=== PATIENT | female | born 1965 ===

== ENCOUNTER 2022-11-03 05:25 | Emergency (ER) | payer MEDICAID ==
[~2022-11-03] VITALS: Ht 152.4 cm; Wt 89.0 kg
[2022-11-03 06:30] LABS: BASOPHILS % 1.2 % (0.0-2.0); EOSINOPHILS % 4.6 % (0.0-5.0); HEMATOCRIT. 26.9 % (36.0-48.0); HEMOGLOBIN. 9.5 g/dL (12.0-16.0); MEAN CORPUSCULAR HEMOGLOBIN 28.9 pg (28.0-32.0); MEAN CORPUSCULAR VOLUME 82.1 fL (81.0-99.0); MEAN PLATELET VOLUME 7.1 fl (7.4-10.4); MONOCYTES % 7.9 % (2.0-8.0); NEUTROPHILS % 64.3 % (40.0-76.0); PLATELET 501 x1000/uL (130-400); RED BLOOD CELL COUNT 3.28 mill/uL (4.2-5.4); RED CELL DISTRIBUTION WIDTH 13.7 % (11.6-14.6)
[2022-11-03 06:36] LABS: CHLORIDE 97 mEq/L (98-107)
[2022-11-03 06:39] LABS: PROTHROMBIN TIME 10.3 sec (9.6-11.0)
[2022-11-03 07:02] VITALS: BP 153/63
[2022-11-03] MEDS ORDERED: CLIN-116 PO (09:16)
== END 2022-11-03 10:08 | disposition home or self-care (01) ==
LOC: ER 05:25
DX: E11.621 Type 2 diabetes mellitus with foot ulcer (principal); E78.00 Pure hypercholesterolemia, unspecified; I10 Essential (primary) hypertension
CPT/HCPCS: 36415; 73630; 80053; 84145; 85025; 99284